=== PATIENT | female | born 1985 | race Caucasian/White ===

== ENCOUNTER 2019-03-03 20:47 | Emergency (ER) | payer OTHER ==
[~2019-03-03] VITALS: Ht 167.6 cm; Wt 127.9 kg
[2019-03-03 23:45] LABS: Basophils # (auto) 0.1 uL; Basophils % (auto) 0.5 % (0.0-2.0); Eosinophils # (auto) 0.3 uL; Eosinophils % (auto) 2.1 % (0.0-7.0); Hematocrit 40.8 % (36.0-46.0); Hemoglobin 13.4 g/dL (12.2-16.2); Lymphocytes # (auto) 2.2 uL; Lymphocytes % (auto) 18.1 % (10.0-50.0); Mean Corpuscular Hgb Conc. 32.9 g/dL (32.0-36.0); Mean Corpuscular Volume 88.2 fL (80.0-100.0); Monocytes # (auto) 0.6 uL; Monocytes % (auto) 5.2 % (0.0-12.0); Neutrophils % (auto) 74.1 % (37.0-80.0); Nucleated Red Blood Cells % 0.1 %; Platelet Count (auto) 338 10^3/uL (140-450); Red Blood Cells 4.63 10^6/uL (4.0-5.20); Red Cell Distribution Width 12.7 % (11.8-14.3); White Blood Cell 12.2 10^3/uL (4.4-10.8)
[2019-03-04 00:04] LABS: Albumin 3.7 g/dL (3.4-5.0); Calcium 9.3 mg/dL (8.5-10.1); Potassium 4.2 mmol/L (3.5-5.1)
[2019-03-04 00:08] LABS: BUN/Creatinine Ratio 8.5; Bilirubin, Total 0.4 mg/dL (0.2-1.0); Total Protein 7.5 g/dL (6.4-8.2)
[2019-03-04 01:03] VITALS: BP 141/87
[2019-03-04] MEDS ORDERED: LIDOCAINE W/ EPINEPHRINE 1% 20ML VIAL ONE (01:10)
[2019-03-04] MEDS ORDERED: cefTRIAXone SOD 1,000 MG VL ONE (02:02)
[2019-03-04] MEDS ORDERED: LIDOCAINE 1% HCL (LOCAL ANESTH.) INJ 20ML MDV ONE (02:02)
[2019-03-04] MEDS ORDERED: BACITRACIN TOP OINT 1 UD PKG TOP ONE (02:02)
== END 2019-03-04 03:02 | disposition home or self-care (01) ==
LOC: EDBD 20:47 → ER 20:49
DX: S01.111A Laceration without foreign body of right eyelid and periocular area, initial encounter (principal); W22.8XXA Striking against or struck by other objects, initial encounter; Y93.89 Activity, other specified; Y99.8 Other external cause status; Y92.89 Other specified places as the place of occurrence of the external cause
CPT/HCPCS: 12013; 36415; 70450; 70486; 80053; 85025; 99284; J0696; J2001

== ENCOUNTER → 2023-10-19 | Outpatient (CLI) | payer OTHER ==
[2023-10-19 15:07] LABS: Hepatitis B Surface Antigen Negative (Negative)
[2023-10-19 15:10] LABS: Hepatitis B Surface Antibody Negative (Negative)
== END | disposition home or self-care (01) ==
LOC: LAB 13:57
PROVIDERS: ATTEND Nurse Practitioner
DX: Z77.21 Contact with and (suspected) exposure to potentially hazardous body fluids (principal)
CPT/HCPCS: 36415; 86703; 86706; 86803; 87340